=== PATIENT | male | born 1965 | race Caucasian/White ===

== ENCOUNTER 2019-06-14 16:25 | Emergency (ER) | payer OTHER ==
[2019-06-14] MEDS ORDERED: Ziprasidone Mesylate 20 MG Vial IM ONE (17:43)
[2019-06-14] MEDS ORDERED: Water For Injection, Sterile 20 ML SDV INJECT ONE (17:43)
[2019-06-14 18:20] LABS: ACETAMINOPHEN <2.0 ug/mL; BLOOD UREA NITROGEN,BUN 15 mg/dL (7.0-18.0); CARBON DIOXIDE,CO2 24.2 mmol/L (21.0-32.0); CHLORIDE,CL 100 mmol/L (98-107); GLUCOSE RANDOM 83 mg/dL (74-106); POTASSIUM,K 4.7 mmol/L (3.5-5.1); SODIUM,NA 139 mmol/L (136-148)
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
== END 2019-06-14 19:08 | disposition home or self-care (01) ==
LOC: MW.ED 16:25
DX: F15.951 Other stimulant use, unspecified with stimulant-induced psychotic disorder with hallucinations (principal); F17.210 Nicotine dependence, cigarettes, uncomplicated
CPT/HCPCS: 36415; 80053; 80305; 80320; 80329; 84443; 85025; 93005; 96372; 99285; J3486; 99283; G0480